=== PATIENT | female | born 1990 | race Asian ===

== ENCOUNTER 2024-02-05 20:43 | Emergency (ER) | payer OTHER ==
[~2024-02-05] VITALS: Ht 149.9 cm; Wt 43.2 kg
[2024-02-05 20:56] VITALS: TEMP 98
[2024-02-05 21:21] LABS: BASOPHILS % (AUTO) 0.9 % (0.0-2.0); EOSINOPHILS % (AUTO) 1.8 % (1.0-6.0); HEMATOCRIT 32.2 % (36-46); HEMOGLOBIN 10.5 g/dL (12.0-16.0); LYMPHOCYTES # (AUTO) 1.8 K/uL (1.0-4.8); LYMPHOCYTES % (AUTO) 36.6 % (22.0-44.0); MEAN CORPUSCULAR HEMOGLOBIN 27.6 pg (26.0-34.0); MEAN CORPUSCULAR HGB CONC 32.7 G/dL (31.0-37.0); MEAN CORPUSCULAR VOLUME 85 fL (80-100); MONOCYTES # (AUTO) 0.3 K/uL (0.1-1.0); MONOCYTES % (AUTO) 6.7 % (2.0-9.0); NEUTROPHILS # (AUTO) 2.6 K/uL (1.8-7.7); PLATELET COUNT (AUTO) 266 K/uL (150-450); RED BLOOD CELL COUNT(AUTO) 3.81 MIL/uL (4.00-5.20); RED CELL DISTRIBUTION WIDTH 13.9 % (11.5-14.5); WHITE BLOOD COUNT (AUTO) 4.8 K/uL (4.5-11.0)
[2024-02-05 21:33] LABS: ANION GAP 14 mmol/L (8-16); CALCIUM, TOTAL 8.9 mg/dL (8.8-10.5); CARBON DIOXIDE 23 mmol/L (22-29); CHLORIDE 101 mmol/L (98-107); CREATININE 0.89 mg/dL (0.60-1.30); GLOMERULAR FILTR. RATE CALC > 60 mL/min (>60); GLUCOSE,RANDOM 133 mg/dL (70-110); SODIUM SERUM 138 mmol/L (136-145); UREA NITROGEN, BLOOD 14 mg/dL (7-18)
[2024-02-05 21:34] LABS: LIPASE 40 U/L (16-77)
[2024-02-05 21:38] LABS: TROPONIN I-HIGH SENSITIVITY 22 ng/L (<51)
[2024-02-05] MEDS: FAMOTIDINE 20 MG/2 ML VIAL IVP ONE (21:52)
[2024-02-05] MEDS: SODIUM CHLORIDE 0.9% 1,000 ML IV ONE (21:52)
[2024-02-05 21:53] LABS: B-TYPE NATRIURETIC PEPTIDE 21 pg/mL (0-100)
[2024-02-05 21:58] LABS: ALBUMIN 4.2 g/dL (3.4-5.0); BILIRUBIN,DIRECT 0.1 mg/dL (0.00-0.20); BILIRUBIN,TOTAL 0.3 mg/dL (0.1-1.0); TOTAL PROTEIN, SERUM 8.2 g/dL (6.4-8.2)
[2024-02-05 22:04] LABS: CREATINE KINASE, TOTAL ONLY 93 U/L (26-192)
[2024-02-05] MEDS: POTASSIUM CHLORIDE 20 MEQ ER TABLET PO ONE (22:21)
[2024-02-05] MEDS ORDERED: IOHEXOL 350 MG/ML 100 ML VIAL ONE (23:02)
[2024-02-05] MEDS ORDERED: SODIUM CHLORIDE 0.9% 100 ML ONE (23:02)
[2024-02-06 00:14] LABS: APPEARANCE,URINE CLEAR (CLEAR); BILIRUBIN,URINE NEGATIVE (NEGATIVE); COLOR,URINE COLORLESS (YELLOW); GLUCOSE, URINE (UA) NEGATIVE (NEGATIVE); KETONES,URINE NEGATIVE (NEGATIVE); LEUKOCYTE ESTERASE ,URINE NEGATIVE (NEGATIVE); NITRATE,URINE NEGATIVE (NEGATIVE); OCCULT BLOOD,URINE NEGATIVE (NEGATIVE); PH,URINE 7.5 (5.0-8.0); PROTEIN,URINE NEGATIVE (NEGATIVE); SPECIFIC GRAVITIY, URINE 1.021 (1.003-1.030); UROBILINOGEN,URINE <=1.0 mg/dL (<=1.0)
[2024-02-06] MEDS ORDERED: KETOROLAC TROMETHAMINE 30 MG/ML VIAL IVP ONE (00:30)
[2024-02-06] MEDS: KETOROLAC TROMETHAMINE 15 MG/ML VIAL IVP ONE (00:49)
[2024-02-06] MEDS: ONDANSETRON HCL 4 MG/2 ML VIAL IVP ONE (00:49)
[2024-02-06 00:51] VITALS: BP 117/63; PULSE 65; RESP 15; O2SAT 98
== END 2024-02-06 01:01 | disposition home or self-care (01) ==
LOC: EMS 20:46
DX: K80.20 Calculus of gallbladder without cholecystitis without obstruction (principal); Z88.0 Allergy status to penicillin; Z91.018 Allergy to other foods
CPT/HCPCS: 99291; 96374; 71275; 76705; 71045; 96361; 80048; 80076; 81003; 82550; 83690; 83880; 84484; 84703; 85025; 36415; 93005 ×2; 96375; Q9967; J3490; J7030; J7050; J1885; J2405